=== PATIENT | male | born 1980 ===

== ENCOUNTER 2022-06-02 13:17 | Observation (INO) ==
[2022-06-02] MEDS ORDERED: cefTRIAXone 1,000 MG in 0.9 % Sodium Chloride 10 ML IVP ONE (13:50)
[2022-06-02] MEDS ORDERED: Iopamidol - 370 500 ML MLS IVP ONE (13:50)
[2022-06-02] MEDS ORDERED: Pantoprazole 40 MG VIAL IVP ONE (13:50)
[2022-06-02] MEDS ORDERED: 0.9 % Sodium Chloride 1,000 ML IV ONE (13:50)
[2022-06-02 14:21] LABS: Basophils # 0.1 K/mcL (0.0-0.2); Basophils % 0.7 %; Eosinophils # 0.2 K/mcL (0.0-0.6); Hematocrit 43.9 % (37.5-50.1); Immature Granulocytes % 1.1 % (0-4); Lymphocytes # 3.8 K/mcL (0.6-4.6); Lymphocytes % 18.6 %; Mean Corpuscular HGB Conc 31.9 g/dL (31.6-35.5); Mean Corpuscular Volume 84.7 fL (83.0-100.0); Mean Platelet Volume 10.2 fL (9.4-12.4); Monocytes # 1.5 K/mcL (0.0-1.3); Neutrophils # 14.8 K/mcL (1.6-8.9); Platelet Count 476 K/mcL (140-400); Red Blood Count 5.18 M/mcL (4.19-5.50); Red Cell Distribution Width 13.9 % (11.5-14.5); Segmented Neutrophils % 71.6 %; White Blood Count 20.6 K/mcL (4.3-11.1)
[2022-06-02 14:37] LABS: Alanine Aminotransferase 16 Units/L (7-52); Albumin 4.4 g/dL (3.5-5.7); Albumin/Globulin Ratio 1.6 (1.1-2.2); Alkaline Phosphatase 81 Units/L (34-104); Aspartate Amino Transferase 16 Units/L (13-39); BUN/Creatinine Ratio 51 (6-26); Bilirubin,Indirect 0.4 mg/dL (0.0-1.0); Bilirubin,Total 0.4 mg/dL (0.3-1.0); Blood Urea Nitrogen 52 mg/dL (6-20); Calcium 9.2 mg/dL (8.6-10.3); Carbon Dioxide 23 mEq/L (23-29); Chloride 107 mEq/L (98-107); Globulin 2.7 g/dL (2.4-3.5); Glucose 132 mg/dL (70-105); INR 1.2; Lipase 35 Units/L (11-82); Osmolality,Calculated 306 (280-300); Potassium 4.9 mEq/L (3.5-5.1); Prothrombin Time 13.9 Seconds (9.4-12.1); Sodium 140 mEq/L (136-145); Total Protein 7.1 g/dL (6.4-8.9); Troponin I < 0.03 ng/mL (< 0.04)
[2022-06-02 14:39] LABS: Activated Partial Thrombo Time 30.7 Seconds (26.0-36.0)
[2022-06-02 16:03] LABS: Basophils # 0.1 K/mcL (0.0-0.2); Basophils % 0.5 %; Eosinophils % 0.2 %; Hematocrit 39.7 % (37.5-50.1); Hemoglobin 12.7 g/dL (12.9-16.9); Immature Granulocytes % 0.7 % (0-4); Lymphocytes # 1.9 K/mcL (0.6-4.6); Lymphocytes % 10.6 %; Mean Corpuscular Hemoglobin 26.8 pg (28.0-33.3); Mean Corpuscular Volume 83.8 fL (83.0-100.0); Mean Platelet Volume 10.1 fL (9.4-12.4); Monocytes # 1.1 K/mcL (0.0-1.3); Monocytes % 5.8 %; Neutrophils # 15.1 K/mcL (1.6-8.9); Platelet Count 406 K/mcL (140-400); Red Blood Count 4.74 M/mcL (4.19-5.50); Segmented Neutrophils % 82.2 %; White Blood Count 18.3 K/mcL (4.3-11.1)
[2022-06-02] MEDS ORDERED: Ondansetron 4 MG/2 ML VIAL IVP PRN ×2 (16:17→17:10)
[2022-06-02] MEDS ORDERED: *HR* Promethazine 25 MG/ML VIAL IM PRN (16:17)
[2022-06-02] MEDS ORDERED: Naloxone 0.4 MG/ML INJ IVP PRN (16:17)
[2022-06-02] MEDS ORDERED: Metoclopramide 10 MG/2 ML VIAL IVP ONE (16:35)
[2022-06-02] MEDS ORDERED: *HR* Succinylcholine 200 MG/10 ML VIAL IVP ONE (16:56)
[2022-06-02] MEDS ORDERED: Lidocaine -MPF 2% 5 ML VIAL ONE (16:56)
[2022-06-02] MEDS ORDERED: *HR* Propofol 200 MG/20 ML VIAL IVP ONE (16:56)
[2022-06-02] MEDS ORDERED: *HR* Rocuronium Bromide 50 MG/5 ML VIAL ONE (16:56)
[2022-06-02] MEDS ORDERED: Ondansetron 4 MG/2 ML VIAL ONE (16:56)
[2022-06-02] MEDS ORDERED: *HR* Vasopressin 20 UNIT/ML VIAL ONE (17:03)
[2022-06-02] MEDS ORDERED: *HR* FentaNYL (PF) 100 MCG/2 ML VIAL ONE (17:39)
[2022-06-02] MEDS ORDERED: *HR* Labetalol 20 MG/4 ML SYRINGE IVP ONE (17:40)
[2022-06-02] MEDS ORDERED: Sugammadex Sodium 200 MG/2 ML VIAL IV ONE (17:44)
[2022-06-02] MEDS ORDERED: 0.9 % Sodium Chloride 1,000 ML ONE (19:56)
[2022-06-02] MEDS ORDERED: Pantoprazole 40 MG VIAL ONE (19:57)
[2022-06-02] MEDS: 0.9 % Sodium Chloride 1,000 ML IVC SCH (20:47)
[2022-06-02] MEDS: Pantoprazole 40 MG VIAL IVP SCH (20:54)
[2022-06-02] MEDS ORDERED: *HR* HYDROcodone/Acet 5/325 mg TABLET PO ONE (20:58)
[2022-06-02 21:56] LABS: Hematocrit 36.1 % (37.5-50.1); Hemoglobin 11.9 g/dL (12.9-16.9)
[2022-06-03] MEDS: 0.9 % Sodium Chloride 1,000 ML IVC SCH (05:15)
[2022-06-03] MEDS: Pantoprazole 40 MG VIAL IVP SCH (05:16)
[2022-06-03 05:59] LABS: Basophils % 0.1 %; Hematocrit 31.9 % (37.5-50.1); Hemoglobin 10.3 g/dL (12.9-16.9); Immature Granulocytes % 0.8 % (0-4); Lymphocytes # 1.8 K/mcL (0.6-4.6); Lymphocytes % 11.5 %; Mean Corpuscular HGB Conc 32.3 g/dL (31.6-35.5); Mean Corpuscular Hemoglobin 27.2 pg (28.0-33.3); Mean Corpuscular Volume 84.2 fL (83.0-100.0); Mean Platelet Volume 10.4 fL (9.4-12.4); Monocytes # 0.6 K/mcL (0.0-1.3); Monocytes % 3.8 %; Neutrophils # 12.9 K/mcL (1.6-8.9); Platelet Count 360 K/mcL (140-400); Red Blood Count 3.79 M/mcL (4.19-5.50); Red Cell Distribution Width 14.1 % (11.5-14.5); Segmented Neutrophils % 83.8 %; White Blood Count 15.4 K/mcL (4.3-11.1)
[2022-06-03 07:05] LABS: Estimated Average Glucose 117 mg/dl; Hemoglobin A1C 5.7 %
[2022-06-03 10:23] VITALS: BP 100/60; PULSE 97; TEMP 98.6; O2SAT 97
[2022-06-03 10:23] LABS: Hematocrit 28.8 % (37.5-50.1); Hemoglobin 9.3 g/dL (12.9-16.9)
== END 2022-06-03 11:19 | disposition home or self-care (01) ==
LOC: EMEROOARM 13:17 → 3ANU 13:17
PROVIDERS: ADMIT Pharmacist; ATTEND Pharmacist